=== PATIENT | male | born 1965 | race Caucasian/White ===

== ENCOUNTER 2020-01-06 14:50 | Emergency (ER) | payer BC, OTHER ==
[~2020-01-06] VITALS: Ht 188 cm; Wt 140.0 kg
[~2020-01-06 14:50] MED LIST: CLIN150C8 PO
[2020-01-06 14:54] VITALS: BP 190/90
[2020-01-06] MEDS ORDERED: HYDROcodone/acetaminophen 5mg/325mg tablet PO ONE (15:10)
[2020-01-06] MEDS ORDERED: HYDR-3965 PO (16:32)
[2020-01-06] MEDS ORDERED: AMOX-580 PO (16:32)
[2020-01-06] MEDS ORDERED: LIDOcaine 1% W/epiNEPHrine 1:100,000 20ml vial ONE (18:50)
== END 2020-01-06 17:39 | disposition home or self-care (01) ==
LOC: ER 14:50
DX: S62.600B Fracture of unspecified phalanx of right index finger, initial encounter for open fracture (principal); Z79.899 Other long term (current) drug therapy; Z79.2 Long term (current) use of antibiotics; W20.8XXA Other cause of strike by thrown, projected or falling object, initial encounter; Y93.89 Activity, other specified; Y92.69 Other specified industrial and construction area as the place of occurrence of the external cause; Y99.0 Civilian activity done for income or pay
CPT/HCPCS: 26725; 73130; 99284